=== PATIENT | female | born 1960 | race Caucasian/White ===

== ENCOUNTER → 2016-06-13 | Outpatient (CLI) | payer BC, OTHER ==
[~2016-06-13] MED LIST: ALBUTEROL MININEB NEB; ALBUTEROL17 GM INH; BUSPAR15 M2 PO; CELEXA20 MG PO; CITALOPRAM HBR40 M1 PO; DALIRESP500 MCG PO; DOXYCYCLINE HY100 M3 PO; FLECTOR30 EA TOP; FLEXERIL PO; HYDROCHLOROTHIA25 MG PO; HYDROCODON-ACE1 EAC5 PO; LEVAQUIN750 M1 PO; LISINOPRIL5 MG PO; MONTELUKAST SOD10 MG PO; NAPROXEN SODIU500 M1 PO; NEURONTIN300 MG PO; NICOTINE PATCH1 EAC1 TD; NICOTINE TRANSD21 MG EXT; NILSTAT PO; NON-ASPIRIN PA325 M1 PO; OXYGEN; PAXIL PO; PERCOCET 10/31 UDTA1 PO; PREDNISONE PO; PREDNISONE10 MG PO; PROMETHAZI6.25 MG/5 PO; PROMETHAZINE D118 ML PO; PROTONIX PO; ROBAXIN 750750 M1 PO; ROBITUSSIN COU118 M2 PO; SINGULAIR PO; SPIRIVA RESPIMAT4 G1 INH; SYMBICORT INH; TYLOX 5/500 CAP1 CAP PO; VIBRAMYCIN100 M1 PO
--- NOTE | ~2016-06-13 | PFT ---
[id number] [facility] [address] [place], [place] [address] [id number] O MR#: [id number] NAME: ERNST BEGUM ROOM: SEX: F STUDY DATE/TIME: 07/13/2016 : 1960 AGE: 56 STUDY DESCRIPTION: Attending Physician: Chinyere De Leon A.P.R.N. Referring Physician: Chinyere De Leon A.P.R.N. Primary Care Physician: Corrina Dietz M.D. PULMONARY DIAGNOSTIC REPORT EXAM Pulmonary Function Study FINDINGS The test meets ATS criteria for acceptability and repeatability. Please see scanned sheet for flow volume loops and actual lung volume values. Spirometry shows very severe obstruction with good bronchodilator response. Lung volumes show severe air trapping and suggestive of a little bit of hyperinflation. Diffusion capacity is severely decreased and partially corrects for alveolar ventilation. This is consistent with very severe COPD. Dictated by... Laura Perkins TD: 07/13/2016 20:56 JOB #: [id number] PULMONARY DIAGNOSTIC REPORT Page 1 of 1
== END | disposition home or self-care (01) ==
LOC: CRC 13:37
DX: R06.2 Wheezing (principal); R05 Cough
CPT/HCPCS: 94060; 94726; 94729

== ENCOUNTER 2016-11-09 09:30 | Inpatient (IN) | payer BC ==
[~2016-11-09] VITALS: Ht 157.5 cm; Wt 57.2 kg
--- NOTE | ~2016-11-09 | CR63 ---
[facility] A Service of [facility] & [facility] RADIOLOGY TEXT RESULTS PATIENT: ERNST BEGUM LOCATION: A 227-01 : [birth year] UNIT #: [id number] AGE: [address]: Faheem Diane MD SEX: F ORDER DR: [id number] [facility] [address] [place], [place] [address] [id number] I MR#: [id number] Acc #: [id number] NAME: ERNST BEGUM : 1960 SEX: F STUDY DATE/TIME: 11/12/2016 7:26 UNIT: [facility] ROOM: [facility] STUDY DESCRIPTION: CR Chest 2 View Attending Physician: Faheem Diane Ordering Physician: Era Taylor A.P.R.N. Primary Care Physician: Ramírez Rico M.D. MEDICAL IMAGING REPORT This report is preliminary unless electronic signature is present EXAM Chest x-ray 11/12 INDICATIONS Cough and shortness of air for 2 weeks. History of smoking. FINDINGS Two views of the chest are compared with 11/10/2016. Cardiac and mediastinal contours are normal and the lungs are clear except for granulomatous calcifications. No pneumothorax. IMPRESSION Old granulomatous disease. No acute findings in the chest. Dictated by... Trenton Watson Jr., M.D. THIS IS AN ELECTRONICALLY VERIFIED REPORT Trenton Watson Jr., M.D. at 11/12/2016 3:47 PM BRUCE/patrice TD: 11/12/2016 10:46 JOB #: [id number] MEDICAL IMAGING REPORT Page 1 of 1 COPY
--- NOTE | ~2016-11-09 | HP ---
Unit #: [id number] #: [id number] Patient: ERNST BEGUM [id number] [address] [place], [place] [address] [id number] I MR#: [id number] NAME: ERNST BEGUM ROOM: 227 Age: 56 Sex: F Admission Date: 11/09/2016 : 1960 Attending Physician: Marbella Diane M.D. Primary Care Physician: Ramírez Rico M.D. HISTORY AND PHYSICAL HISTORY OF PRESENT ILLNESS This is a 56-year-old lady with a history of COPD seen in the office by Chinyere De Leon who has had a two-week increase of shortness of air, cough, and significant wheeze. Patient was started on prednisone taper and Depo injection on November 07 and then given again on November 08. However, the patient despite that and being started on Levaquin 40 mg daily, did not improve. Patient was having increased shortness of breath and progressively worsening dyspnea and therefore was admitted to the hospital. REVIEW OF SYSTEMS Positive for shortness of air, wheezing, and chest tightness. No significant fevers, chills, nausea, vomiting, or diarrhea, no vision changes, (1) sore throat, no stiff neck, and negative for headaches. PAST MEDICAL HISTORY 1. COPD. 2. Hypertension. 3. Cervical cancer. PAST SURGICAL HISTORY Cervical cancer resection. FAMILY HISTORY Noncontributory. SOCIAL HISTORY Patient continues to smoke. Denies any alcohol, denies any occupational history, and denies any history of polysubstance use. ALLERGIES No known medical allergies. HOME MEDICATIONS 1. Diclofenac 30 mg topical daily. 2. Protonix 40 mg daily. 3. Doxycycline 100 mg daily for 10 days. 4. Lisinopril 5 mg daily. 5. Promethazine 50 mg p.o. 4 times daily as needed. 6. Neurontin 300 mg daily as needed. 7. Daliresp 500 mcg daily. 8. Albuterol nebulizer 4 times daily. 9. Oxygen at 2 liters per minute. 10. Ventolin 2 puffs every 4 hours as needed. 11. Symbicort 2 puffs twice daily. Unit #: [id number] #: [id number] Patient: ERNST BEGUM 12. Spiriva Respimat 2 puffs inhaled twice daily. 13. Robaxin 750 mg daily. 14. Naproxen 500 mg twice daily. PHYSICAL EXAMINATION VITAL SIGNS: Blood pressure 118/74, pulse 114, respiratory rate 12, current temperature 98.7, and saturation 92% on 3 liters nasal cannula. HEENT: Extraocular movements are intact. Pupils are equal, round, and reactive to light. Head is normocephalic and atraumatic. NECK: Accessory muscle use. No significant JVD. Neck is about 16 inches in circumference. CHEST: Expiratory wheeze throughout the lungs. HEART: Regular rate. No gallops, no murmurs. ABDOMEN: Soft, nontender, and nondistended. EXTREMITIES: No significant edema. DIAGNOSTIC STUDIES IMAGING: Chest x-ray shows increased markings bilaterally. No clear infiltrate. There does appear to be a little bit of atelectasis on lateral view. ASSESSMENT 1. Exacerbation of chronic obstructive pulmonary disease. 2. Acute on chronic respiratory failure. PLAN Change steroids to IV and continue. Continue scheduled nebulizers. Change Levaquin to IV and supplemental oxygen. Observe patient for progressive respiratory deterioration. Dictated by Laura Perkins/bipin TD: 11/11/2016 15:06 JOB #: [id number] HISTORY AND PHYSICAL Page 1 of 1 X Faheem Diane MD X HISTORY AND PHYSICAL
--- NOTE | ~2016-11-09 | CR63 ---
[facility] A Service of [facility] & [facility] RADIOLOGY TEXT RESULTS PATIENT: ERNST BEGUM LOCATION: [facility] 227-01 : [birth year] UNIT #: [id number] AGE: [address]: Faheem Diane MD SEX: F ORDER DR: [id number] [facility] [address] [place], [place] [address] [id number] I MR#: [id number] Acc #: [id number] NAME: ERNST BEGUM : 1960 SEX: F STUDY DATE/TIME: 11/10/2016 7:58 UNIT: [facility] ROOM: [facility] STUDY DESCRIPTION: CR Chest 2 View Attending Physician: Faheem Diane Ordering Physician: Faheem Diane Primary Care Physician: Ramírez Rico M.D. MEDICAL IMAGING REPORT This report is preliminary unless electronic signature is present EXAM Two views of the chest. COMPARISON April 19, 2016, and April 17, 2016. INDICATIONS 56-year-old female with dyspnea and cough for 2 weeks. History of COPD. FINDINGS Stable calcified granuloma in the left lower lobe. Breast shadows noted over both lung bases on frontal view. No evidence of pneumothorax, pleural effusion or acute airspace disease. IMPRESSION No acute radiographic abnormality of the chest. Normal heart size. Dictated by... Andrew Quintanilla M.D. THIS IS AN ELECTRONICALLY VERIFIED REPORT Andrew Quintanilla M.D. at 11/15/2016 6:30 PM GEORGIA/sandra TD: 11/10/2016 13:23 JOB #: [id number] MEDICAL IMAGING REPORT Page 1 of 1 COPY
--- NOTE | ~2016-11-09 | DS ---
Unit #: [id number] #: [id number] Patient: ERNST BEGUM [id number] [facility] [place], [place] [address] [id number] I MR#: [id number] NAME: ERNST BEGUM ROOM: 227 Age: 56 Sex: F Admission Date: 11/09/2016 : 1960 Discharge Date: 11/14/2016 Attending Physician: Marbella Diane M.D. Primary Care Physician: Ramírez Rico M.D. DISCHARGE SUMMARY REASON COPD exacerbation, acute on chronic respiratory failure, anxiety. CONSULTS None. HISTORY OF PRESENT ILLNESS This is a pleasant, 56-year-old lady who sees Chinyere De Leon in the office. She has had a two-week increase in shortness of breath, cough, and significant wheezing. Patient started on prednisone taper, depo injection November 07 and given again on November 08. The patient did not improve despite this and also was being started on doxycycline and Levaquin p.o. daily. She was having significant shortness of breath, progressively worsening dyspnea. Therefore, admitted to the hospital. HOSPITAL COURSE Patient was placed on IV Levaquin, steroids. Procalcitonin was obtained. It did not show evidence of significant infection being 0.8. Patient had a mild, but not significant, increase in her glucose due to steroid taper and she was placed on running between 123 and 147. The patient's chest x-rays continued not to show any acute findings of the chest, just acute granulomatous disease; however, attempts to wean the steroids were slow due to severe spasming and bronchitis. On hospital day three, patient's wheezing improved dramatically. Therefore, she was switched to IV steroids, which was tapered over a two-day period and then switched to oral. The patient was good enough to go home on the and, therefore, she is going to go home and follow up with Chinyere in a week. DISCHARGE MEDICATIONS 1. Albuterol neb 4 times a day. 2. Albuterol puff every 4 hours as needed for shortness of air. 3. Symbicort 160/4.5 two puffs b.i.d. 4. Prednisone 40 mg twice a day for 1 day, 60 mg x1 day, 50 mg x1 day, 40 mg x1 day, 30 mg x1 day, 20 mg x1 day, 10 mg x1 day. 5. Tiotropium, Spiriva Respimat, 2 puffs inhaled twice a day. 6. Gabapentin 300 mg daily. 7. Celexa 40 mg daily. 8. Promethazine 50 mg 4 times a day as needed for cough. 9. BuSpar 15 mg twice a day. 10. Nicotine starter pack transdermal every morning. 11. Oxygen 2 liters at night. 12. Lisinopril 5 mg daily. 13. Montelukast 10 mg daily. Unit #: [id number] #: [id number] Patient: ERNST BEGUM 14. Nystatin swish and swallow 5 mL p.o. 4 times daily x10 days. 15. Naproxen 500 mg p.o. b.i.d. 16. Oxycodone/acetaminophen 1 tablet p.o. t.i.d. 17. Pantoprazole 40 mg daily. 18. Levaquin 750 mg p.o. every day x3 days. 19. Daliresp 500 mcg daily. 20. Methocarbamol 750 mg p.o. t.i.d. p.r.n. 21. Diclofenac topical daily as needed for back pain. DISCHARGE INSTRUCTIONS 1. Diet is regular as tolerated. 2. Follow up with Chinyere in approximately two weeks. 3. Activity is as tolerated. Dictated by... Laura Perkins/sandra TD: 11/15/2016 07:25 JOB #: [id number] DISCHARGE SUMMARY Page 1 of 1 X Faheem Diane MD X DISCHARGE SUMMARY
[~2016-11-09 09:30] MED LIST changes: -ALBUTEROL MININEB NEB; -DALIRESP500 MCG PO; -LEVAQUIN750 M1 PO; -NEURONTIN300 MG PO; -NICOTINE PATCH1 EAC1 TD; -NILSTAT PO; -OXYGEN; -PROMETHAZI6.25 MG/5 PO
[2016-11-09 16:44] LABS: ARTERIAL BLD GAS O2 SATURATION 83.8 % (90.0-100.0); ARTERIAL BLOOD GAS CARBOXY HB 7.6 %sat (0.0-9.0); ARTERIAL BLOOD GAS HCO3 29.6 mmol/L; ARTERIAL BLOOD GAS MET HB 0.6 %sat (0.0-2.0); ARTERIAL BLOOD GAS PCO2 48.2 mmHg (35.0-45.0); ARTERIAL BLOOD GAS pH 7.397 (7.350-7.450)
[2016-11-09 16:45] LABS: ARTERIAL BLOOD GAS PO2 62.4 mmHg (80.0-100)
[2016-11-09 16:46] LABS: ARTERIAL BLOOD GAS ALLEN TEST NORMAL; ARTERIAL BLOOD GAS ART SITE LEFT RADIAL; ARTERIAL BLOOD GAS DELIVERY ROOM AIR; ARTERIAL DRAW? YES
[2016-11-09] MEDS ORDERED: PROMETHAZI6.25 MG/5 PO (17:01)
[2016-11-09] MEDS ORDERED: NEURONTIN300 MG PO (17:03)
[2016-11-09] MEDS ORDERED: DALIRESP500 MCG PO (17:04)
[2016-11-09] MEDS ORDERED: ALBUTEROL MININEB NEB (17:05)
[2016-11-09] MEDS ORDERED: OXYGEN (17:05)
[2016-11-09 17:06] LABS: HEMATOCRIT 39.6 % (35.0-45.0); HEMOGLOBIN 13.8 gm/dL (12.0-16.0); MEAN CELL VOLUME 109.8 FL (83-96); MEAN CORPUSCULAR HEMOGLOBIN 38.1 PG (28-34); MEAN CORPUSCULAR HGB CONC 34.7 g/dL (30-36); MEAN PLATELET VOLUME 7.8 FL (6.5-11.5); RED BLOOD COUNT 3.61 X10e (3.90-5.30); RED CELL DISTRIBUTION WIDTH 13.9 % (11.0-15.5); WHITE BLOOD COUNT 8.7 X10e3 (4.0-10.5)
[2016-11-09 17:26] LABS: ALBUMIN SERUM 4.2 g/dL (3.5-5.0); BILIRUBIN,TOTAL 0.7 mg/dL (0.2-2.0); CALCIUM SERUM 10.1 mg/dL (8.4-10.2); GLOM FILT RATE Estimated 63.4 mL/min (>60); PROTEIN TOTAL SERUM 7.1 g/dL (6.0-8.3)
[2016-11-11 05:43] LABS: HEMATOCRIT 39.4 % (35.0-45.0); HEMOGLOBIN 13.3 gm/dL (12.0-16.0); MEAN CORPUSCULAR HEMOGLOBIN 37.6 PG (28-34); MEAN CORPUSCULAR HGB CONC 33.9 g/dL (30-36); MEAN PLATELET VOLUME 8.5 FL (6.5-11.5); RED BLOOD COUNT 3.55 X10e (3.90-5.30); RED CELL DISTRIBUTION WIDTH 14.3 % (11.0-15.5); WHITE BLOOD COUNT 6.6 X10e3 (4.0-10.5)
[2016-11-11 07:09] LABS: CALCIUM SERUM 9.6 mg/dL (8.4-10.2); CREATININE SERUM 0.8 mg/dL (0.6-1.4); GLOM FILT RATE Estimated 83.1 mL/min (>60); POTASSIUM 3.6 mmol/L (3.5-5.1)
[2016-11-13 07:00] LABS: ALBUMIN SERUM 3.7 g/dL (3.5-5.0); BILIRUBIN,TOTAL 0.6 mg/dL (0.2-2.0); CALCIUM SERUM 9.3 mg/dL (8.4-10.2); CREATININE SERUM 0.6 mg/dL (0.6-1.4); GLOM FILT RATE Estimated 102.6 mL/min (>60); MAGNESIUM 1.4 mg/dL (1.6-3.0); PHOSPHOROUS 2.5 mg/dL (2.5-4.6); POTASSIUM 3.7 mmol/L (3.5-5.1)
[2016-11-14] MEDS ORDERED: NILSTAT PO (21:08)
[2016-11-14] MEDS ORDERED: PREDNISONE10 MG PO (21:09)
[2016-11-14] MEDS ORDERED: NICOTINE PATCH1 EAC1 TD (21:11)
[2016-11-14] MEDS ORDERED: LEVAQUIN750 M1 PO (21:13)
== END 2016-11-14 21:54 | disposition home or self-care (01) | DRG 189 ==
LOC: UNDOADMOB 09:30 → C2A 09:30 → UNDOADMOB 16:12 → C2A 16:12
PROVIDERS: Internal Medicine Pulmonary Disease; Registered Nurse
DX: J96.21 Acute and chronic respiratory failure with hypoxia (principal); J44.1 Chronic obstructive pulmonary disease with (acute) exacerbation; I10 Essential (primary) hypertension; Z85.41 Personal history of malignant neoplasm of cervix uteri; F17.210 Nicotine dependence, cigarettes, uncomplicated
CPT/HCPCS: 36600; 71020; 80048; 80053; 82308; 82803; 82947; 83735; 84100; 85027; 94640; 94664; 94760; J2920; J2930